=== PATIENT | female | born 1945 | race Caucasian/White ===

== ENCOUNTER → 2018-06-05 12:19 | Outpatient (CLI) | payer MEDICARE, OTHER, SELFPAY ==
--- NOTE | 2018-06-05 12:21 | DI.RAD.S_ITS ---
PROCEDURE: XR CERVICAL SPINE 4V OR 5V INDICATIONS: CERVICAL SPONDYLOSIS TECHNIQUE: 5 views of the cervical spine acquired. COMPARISON: None. FINDINGS: Bones: No fractures or dislocations to the C7 level. Severe narrowing of the C4-C5 disc space. Moderate narrowing of the C5-C6 and C6-C7 disc spaces. Diffuse facet arthropathy. Straightening of the normal cervical lordosis. Mild right C4-C5 bony foraminal narrowing. Minimal left C4-C5 and C5-C6 bony foraminal narrowing. Soft tissues: No prevertebral soft tissue swelling. IMPRESSION: Diffuse mid to lower cervical spondylosis most pronounced at C4-C5 and facet arthropathy as above. Dictated by: Garry Roger M.D. on 06/05/2018 at 17:41 Approved by: Garry Roger M.D. on 06/05/2018 at 17:43
--- NOTE | 2018-06-05 12:34 | DI.RAD.S_ITS ---
PROCEDURE: XR HIP W PEL IF DONE LT MIN 4V INDICATIONS: Hip pain TECHNIQUE: AP pelvis with lateral view(s) of the left and right hip(s). COMPARISON: None. FINDINGS: Bones: No fractures or dislocations. Pelvic ring appears intact. No suspicious bony lesions. Mild bilateral hip degeneration. Lower lumbar spondylosis. Increased sclerosis also seen at the pubic symphysis Soft tissues: The visualized bowel gas pattern is normal. No suspicious soft tissue calcifications. IMPRESSION: Mild bilateral hip degeneration. Lower lumbar spondylosis. Dictated by: Garry Roegr M.D. on 06/05/2018 at 13:07 Approved by: Garry Roger M.D. on 06/05/2018 at 13:17
--- NOTE | 2018-06-05 12:34 | DI.RAD.S_ITS ---
PROCEDURE: XR THORACIC SPINE 3V INDICATIONS: Thoracic spondylosis TECHNIQUE: 3 views of the thoracic spine were acquired. COMPARISON: None. FINDINGS: Bones: No fractures or dislocations. No suspicious bony lesions. Levocurvature of the thoracolumbar spine. Diffuse spondylosis Soft tissues: No paravertebral stripe thickening. IMPRESSION: Diffuse spondylitic changes. No fracture. Levocurvature of the thoracolumbar spine. Dictated by: Garry Roger M.D. on 06/05/2018 at 17:43 Approved by: Garry Roger M.D. on 06/05/2018 at 17:44
== END ==
PROVIDERS: Family Provider Internal Medicine; PCP Internal Medicine; Visit Provider Physical Medicine & Rehabilitation
DX: M47.22 Other spondylosis with radiculopathy, cervical region (principal); M47.816 Spondylosis without myelopathy or radiculopathy, lumbar region; M47.814 Spondylosis without myelopathy or radiculopathy, thoracic region; M16.0 Bilateral primary osteoarthritis of hip; M70.61 Trochanteric bursitis, right hip; M47.812 Spondylosis without myelopathy or radiculopathy, cervical region
CPT/HCPCS: 72050; 72072; 73522; 99215